=== PATIENT | male | born 1975 | race Caucasian/White ===

== ENCOUNTER 2019-10-11 07:18 | Outpatient (CLI) | payer OTHER ==
[~2019-10-11 07:18] MED LIST: AMPICILLIN TRI500 MG PO; BENZONATATE100 MG PO; LEVOXYL100 MCG PO; [UNRECOGNIZED DRUG - OTHER]; [UNRECOGNIZED DRUG - OTHER] IM
== END 2019-10-11 07:21 | disposition home or self-care (01) ==
LOC: RAD 07:18
DX: N20.0 Calculus of kidney (principal)

== ENCOUNTER 2019-10-20 05:22 | Inpatient (IN) | payer OTHER ==
[~2019-10-20] VITALS: Ht 190.5 cm; Wt 129.3 kg
[2019-10-21] MEDS ORDERED: METAPROTERENOL (08:20)
== END 2019-10-22 09:44 | disposition home or self-care (01) | DRG 661 ==
LOC: CIR.AMB 05:22 → EDSTATUS 09:15 → CIR.AMB 09:15 → SURG 09:15 → O/R 15:55 → SURG 16:20
PROVIDERS: ADMIT Urology
PROC: BT1DYZZ Fluoroscopy of Right Kidney, Ureter and Bladder using Other Contrast (ICD-10-PCS; 2019-10-20)
PROC: 0TC03ZZ Extirpation of Matter from Right Kidney, Percutaneous Approach (ICD-10-PCS; principal; 2019-10-20 07:00)
DX: N20.0 Calculus of kidney (principal); E03.8 Other specified hypothyroidism

== ENCOUNTER 2019-11-12 08:23 | Outpatient (CLI) | payer OTHER ==
[~2019-11-12 08:23] MED LIST changes: +METAPROTERENOL
== END 2019-11-12 09:00 | disposition home or self-care (01) ==
LOC: RAD 08:23
DX: N20.0 Calculus of kidney (principal)

== ENCOUNTER 2019-11-12 10:51 | Outpatient (CLI) | payer OTHER | END 2019-11-12 10:57 | disposition home or self-care (01) | LOC: LAB 10:51 | DX: N20.0 Calculus of kidney (principal); N30.00 Acute cystitis without hematuria ==

== ENCOUNTER 2019-11-13 07:15 | Outpatient (CLI) | payer OTHER | END 2019-11-13 07:30 | disposition home or self-care (01) | LOC: LAB 07:15 | DX: N20.0 Calculus of kidney (principal) ==

== ENCOUNTER 2019-11-17 05:21 | Inpatient (IN) | payer OTHER | END 2019-11-19 10:56 | disposition home or self-care (01) | DRG 661 | LOC: CIR.AMB 05:21 → SURG 07:30 → CIR.AMB 07:30 → EDSTATUS 07:30 → SURH 13:46 → O/R 13:46 → SURH 16:54 | PROVIDERS: ADMIT Urology | PROC: 0T768DZ Dilation of Right Ureter with Intraluminal Device, Via Natural or Artificial Opening Endoscopic (ICD-10-PCS; 2019-11-17) | PROC: BT1FYZZ Fluoroscopy of Left Kidney, Ureter and Bladder using Other Contrast (ICD-10-PCS; 2019-11-17) | PROC: 0TC18ZZ Extirpation of Matter from Left Kidney, Via Natural or Artificial Opening Endoscopic (ICD-10-PCS; principal; 2019-11-17 07:00) | DX: N20.0 Calculus of kidney (principal); Z96.0 Presence of urogenital implants ==

== ENCOUNTER → 2019-11-26 | Outpatient (CLI) | payer OTHER | END | disposition home or self-care (01) | LOC: RAD 07:11 | DX: N20.0 Calculus of kidney (principal) ==

== ENCOUNTER → 2020-01-03 06:34 | Outpatient (CLI) | payer OTHER | END | disposition home or self-care (01) | LOC: LAB 06:34 | DX: N20.0 Calculus of kidney (principal) ==

== ENCOUNTER 2020-01-04 06:16 | Outpatient (CLI) | payer OTHER | END 2020-01-04 06:25 | disposition home or self-care (01) | LOC: LAB 06:16 | DX: N20.0 Calculus of kidney (principal) ==